=== PATIENT | male | born 1975 | race Caucasian/White ===

== ENCOUNTER 2020-11-18 06:43 | Outpatient (RCR) | payer BC, SELFPAY | END 2020-12-11 23:59 | disposition home or self-care (01) | LOC: SPT 06:43 | PROVIDERS: Family Provider Family Medicine; PCP Family Medicine; Visit Provider Family Medicine | DX: M54.89 Other dorsalgia (principal); G89.29 Other chronic pain | CPT/HCPCS: 97110; 97161 ==

== ENCOUNTER 2021-02-26 12:00 | Outpatient (CLI) | payer BC, SELFPAY | END 2021-02-26 12:01 | disposition home or self-care (01) | LOC: SLEEP 02-27 09:49 | PROVIDERS: Family Provider Family Medicine; PCP Family Medicine; Visit Provider Family Medicine | DX: R40.0 Somnolence (principal); E78.5 Hyperlipidemia, unspecified | CPT/HCPCS: G0399 ==

== ENCOUNTER 2021-11-05 06:00 | Outpatient (RCR) | payer BC, SELFPAY | END 2021-11-11 23:59 | disposition home or self-care (01) | LOC: SPT 06:00 | PROVIDERS: PCP Family Medicine; Referring Provider Family Medicine; Visit Provider Family Medicine | DX: M75.82 Other shoulder lesions, left shoulder (principal) | CPT/HCPCS: 97161 ==

== ENCOUNTER 2021-11-12 06:00 | Outpatient (RCR) | payer BC, SELFPAY | END 2021-12-10 08:36 | disposition home or self-care (01) | LOC: SPT 06:00 | PROVIDERS: PCP Family Medicine; Referring Provider Family Medicine; Visit Provider Family Medicine | DX: M75.92 Shoulder lesion, unspecified, left shoulder (principal) | CPT/HCPCS: 97110 ==

== ENCOUNTER → 2022-09-29 08:11 | Outpatient (BNVA) | payer BC, SELFPAY | PROVIDERS: PCP Family Medicine; Visit Provider Family Medicine | DX: R07.9 Chest pain, unspecified (principal); R06.00 Dyspnea, unspecified; R05.9 Cough, unspecified; R53.83 Other fatigue | CPT/HCPCS: 80053; 80061; 82607; 83880; 84403; 84443; 85025 ==

== ENCOUNTER 2022-12-08 07:18 | Outpatient (CLI) | payer BC, SELFPAY ==
--- NOTE | 2022-12-08 | ECG_ITS ---
[facility] Test Date: 2022-12-08 Pat Name: Ernesto Bloom Department: Room: Gender: Male Technical Architect: Gloria Reynolds : 1975 Requested By: Omid Guardado Order Number: [id number] Campos MD: Patel Main M.D. Interpretive Statements NAME OF STUDY: EXERCISE SESTAMIBI STRESS TEST INDICATION: [Chest Pain, ] EXERCISE DATA: The patient was exercised by Vern protocol. Baseline heart rate was 61 beats per minute. Baseline blood pressure was 125/94 millimeters of mercury. Target heart rate was 147 beats per minute. Maximum heart rate achieved was 151, which was 102% of the target heart rate. Maximum blood pressure was 191/141 millimeters of mercury. Total exercise time was 11 minutes 33 seconds. Maximum METs achieved was 13.5. The reason for ending the test was completion of protocol. The patient complained of shortness of breath during the stress test, which then resolved at the end of the test. ELECTROCARDIOGRAM: BASELINE: Showed sinus rhythm, normal axis, right bundle branch block. EXERCISE: At the peak exercise level, [] No significant ST-T changes suggestive of ischemia noted. [] RECOVERY: During the recovery period, heart rate dropped appropriately. No significant ST-T changes in the recovery suggestive of ischemia noted. [] CONCLUSION: 1. Exercise capacity is excellent 2. Heart rate response was appropriate 3. Blood pressure response was appropriate 4. Symptoms not suggestive of ischemia. 5. Electrocardiogram portion of the stress test was not suggestive of ischemia. 6. Nuclear scan will be documented separately. Electronically Signed On 12-12-2022 15:04:03 CDT by Patel Main M.D. [id number]
--- NOTE | 2022-12-08 07:44 | NMCV_ITS ---
NM pedrito perf SPECT r/s* [id number] Ernesto Bloom Age: 47 Gender: M : 1975 Exam Date: 12/08/2022 08:29 Ordering Phys: Omid Man MD Technologist: PIPPA Castro Exam Location: [facility] Indications: CHEST PAIN STRESS TEST Please see separate stress test report in [facility] for full findings IMAGE PROTOCOL Rest/Stress 1 Radiopharmaceutical Dose (mCi) Administration Site Administered by Rest: Tc-99m 10.8 IV PIPPA Brumfield Sestamibi Stress:Tc-99m 33.0 IV PIPPA Brumfield Sestamibi Rest: 08-Dec-2022 60 Discovery 630 Stress: 08-Dec-2022 30 Discovery 630 Radiopharmaceutical was injected at 85 % maximum heart rate. Images obtained in supine and prone position. SPECT RESULTS Technical Quality: Excellent Raw Data Analysis: Normal Image Corrections: No attenuation or motion correction applied Summed Stress Score: 7 Summed Rest Score: 8 Summed Difference Score: 2 PERFUSION FINDINGS There is a small in size, mostly fixed perfusion defect noted in anterior and anterolateral don. This is consistent with small sized areas of prior infarct with minimal alberto-infarct ischemia in these territories FUNCTIONAL RESULTS (calculated via Gated SPECT) Stress Image LV EF (%): 65 Stress EDV (mL):120 TID: 0.81 Stress ESV (mL):42 FUNCTIONAL FINDINGS: There is normal left ventricular systolic function. IMPRESSIONS 1. 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 LV systolic function is normal Patel Main MD (Electronically Signed) Final Date: 08 December 2022 11:18 S
[2022-12-08 09:48] VITALS: BP 142/93; PULSE 84
== END 2022-12-08 07:19 | disposition home or self-care (01) ==
LOC: CDL 07:19
PROVIDERS: PCP Family Medicine; Visit Provider Family Medicine
DX: R07.9 Chest pain, unspecified (principal); I25.2 Old myocardial infarction
CPT/HCPCS: 36415; 78452; 93017; A9500

== ENCOUNTER 2023-07-07 08:54 | Outpatient (CLI) | payer BC, SELFPAY ==
--- NOTE | 2023-07-07 09:01 | XR_ITS ---
WS: [id number] XR lumbar spine 2-3V* [id number] REASON FOR EXAM: back pain FINDINGS: 5 lumbar vertebrae. Normal lumbar spine curvatures. No focal vertebral body abnormality. Intervertebral disc spaces are intact and relatively well preserved. Minimal anterolisthesis of L5 in relation to L4 and L4 in relation to L3. IMPRESSION: Minimal change of degenerative spondylosis in the lumbar spine as above.
== END 2023-07-07 08:55 | disposition home or self-care (01) ==
LOC: RAD 08:55
PROVIDERS: PCP Family Medicine; Visit Provider Family Medicine
DX: M47.816 Spondylosis without myelopathy or radiculopathy, lumbar region (principal)
CPT/HCPCS: 72100

== ENCOUNTER → 2023-10-11 12:58 | Outpatient (BNVA) | payer BC, SELFPAY | PROVIDERS: PCP Family Medicine; Visit Provider Podiatrist Foot & Ankle Surgery | DX: M79.671 Pain in right foot (principal); M79.672 Pain in left foot; G57.62 Lesion of plantar nerve, left lower limb | CPT/HCPCS: 73630 ==

== ENCOUNTER 2023-12-02 10:51 | Outpatient (CLI) | payer BC, SELFPAY | END 2023-12-02 10:52 | disposition home or self-care (01) | LOC: SPT 10:52 | PROVIDERS: PCP Family Medicine; Visit Provider Podiatrist Foot & Ankle Surgery | DX: Z46.89 Encounter for fitting and adjustment of other specified devices (principal); G57.62 Lesion of plantar nerve, left lower limb | CPT/HCPCS: L3030 ==

== ENCOUNTER → 2025-02-27 07:56 | Outpatient (BNVA) | payer BC, SELFPAY | PROVIDERS: PCP Family Medicine; Visit Provider Family Medicine | DX: E78.5 Hyperlipidemia, unspecified (principal) | CPT/HCPCS: 80053; 80061 ==

== ENCOUNTER 2025-03-07 09:40 | Outpatient (CLI) | payer BC, SELFPAY ==
--- NOTE | 2025-03-07 09:45 | CT_ITS ---
WS: [id number] CT chest w con* [id number] HISTORY: cough/ fu on lung nodule TECHNIQUE: Axial imaging performed through the thorax. Coronal and sagittal reformats are submitted. All CT scans at [facility] use at least one of these dose optimization techniques: automated exposure control; mA and/or kV adjustment per patient size (includes targeted exams where dose is matched to clinical indication); or iterative reconstruction. CONTRAST: Omnipaque 350; 100 mL IV. DLP: 453.01 mGy.cm COMPARISON: None available. Lungs and central airway: Lungs are well aerated. 3 mm nodule along the RIGHT minor fissure. Additional 4 mm nodule superior segment RIGHT lower lobe. No additional mass or nodule. Pleura: Normal. No pleural effusion. Heart and pericardium: Normal size heart with no pericardial effusion. Mediastinum and immanuel: No mediastinum or hilar adenopathy. Vessels: Normal size aorta and pulmonary artery. LEFT vertebral artery arises directly from the arch. Chest wall and lower neck: No soft tissue masses. Upper abdomen: No adrenal mass. Atrophic LEFT kidney. Mild atrophy with diffuse cortical thinning. Greater atrophy involving the lower pole. Osseous structures: No destructive process. CT/CT chest w con* [id number] IMPRESSION: 1. 3 mm noncalcified nodule along the RIGHT minor fissure. These are typically benign lymph nodes. 2. 4 mm nodule superior segment RIGHT lower lobe. No prior studies for compari son. Indeterminate solid pulmonary nodule measuring 4 mm. In a low-risk patient with a solid nodule <6 mm, recommend no follow-up. In a high-risk patient, CT at 12 months is optional with stronger consideration if there is suspicious nodule m orphology and/or upper lobe location. 3. Diffuse atrophy LEFT kidney with more focal cortical thinning involving the lower pole.
[2025-03-07] MEDS: iohexol 350 mg/mL 500 mL Btl (per mL) IV (10:02)
== END 2025-03-07 09:41 | disposition home or self-care (01) ==
LOC: RAD 09:42
PROVIDERS: PCP Family Medicine; Visit Provider Family Medicine
DX: R91.8 Other nonspecific abnormal finding of lung field (principal); N26.1 Atrophy of kidney (terminal)
CPT/HCPCS: 71260

== ENCOUNTER 2025-03-26 07:44 | Outpatient (CLI) | payer BC, SELFPAY ==
--- NOTE | 2025-03-26 07:45 | US_ITS ---
WS: [id number] RENAL ULTRASOUND HISTORY: abnormal CT COMPARISON: CT 03/07/2025 TECHNIQUE: 2-D and color Doppler imaging of the kidney submitted. Right kidney: 11.8 cm x 5.3 cm x 5.5 cm. Cortex: 1.0 cm Normal echogenicity with no hydronephrosis or mass. Left kidney: 9.1 cm x 3.8 cm x 3.8 cm. Cortex: 0.9 cm Mild atrophy LEFT kidney with mild diffuse cortical thinning. More focal prominent cortical thinning and scarring in the mid to lower kidney. No hydronephrosis or mass. Aorta: Normal. Urinary Bladder: Normal distention. US/US renal BI* [id number] IMPRESSION: 1. No renal obstruction. 2. Diffuse cortical thinning LEFT kidney with a more focal cortical thinning a nd scarring in the mid to lower kidney. No obstruction. No mass.
== END 2025-03-26 07:45 | disposition home or self-care (01) ==
LOC: RAD 07:45
PROVIDERS: PCP Family Medicine; Visit Provider Family Medicine
DX: R93.422 Abnormal radiologic findings on diagnostic imaging of left kidney (principal)
CPT/HCPCS: 76770